=== PATIENT | male | born 1985 | race Caucasian/White ===

== ENCOUNTER 2019-12-07 11:17 | Emergency (ER) | payer SELFPAY ==
[~2019-12-07] VITALS: Ht 182.9 cm; Wt 72.7 kg
[2019-12-07 11:21] VITALS: TEMP 97.9
[2019-12-07] MEDS ORDERED: NORCO 325 MG-51 TAB PO (13:25)
[2019-12-07] MEDS ORDERED: CEPHALEXIN500 M1 PO (13:25)
[2019-12-07 13:52] VITALS: BP 139/84; PULSE 74
== END 2019-12-07 13:50 | disposition home or self-care (01) ==
LOC: COL.ER 11:17
DX: S62.631B Displaced fracture of distal phalanx of left index finger, initial encounter for open fracture (principal); W23.0XXA Caught, crushed, jammed, or pinched between moving objects, initial encounter; Y92.410 Unspecified street and highway as the place of occurrence of the external cause
CPT/HCPCS: J0690; J3010